=== PATIENT | male | born 1980 | race Caucasian/White ===

== ENCOUNTER 2025-06-21 08:20 | Emergency (ER) | payer OTHER, SELFPAY ==
--- NOTE | ~2025-06-21 | XR_ITS ---
EXAMINATION: XR foot LT min 3V DATE: 06/21/2025 09:34 INDICATION: 2 days of left toe pain TECHNIQUE: Dorsoplantar, two oblique and lateral views of the left foot were obtained. COMPARISON: None. FINDINGS: Bone alignment is normal. No fracture. Mild osteoarthritis at the first metatarsophalangeal and a few interphalangeal joints. Possible tiny erosion at the medial base of the first proximal phalanx. Soft tissues are unremarkable with no ankle joint effusion. IMPRESSION: 1. Mild osteoarthritis in the forefoot and possible tiny erosion at the medial base of the first meta tarsal and could not exclude an inflammatory arthritis or crystalline arthropathy such as gout.. Reviewed, dictated and finalized at location A. IMPRESSION: 1. Mild osteoarthritis in the forefoot and possible tiny erosion at the medial base of the first metatarsal and could not exclude an inflammatory arthritis or crystalline arthropathy such as gout..
--- OUTSIDE RECORDS SUMMARY | 2025-06-21 08:23 | XMS_ITS | Encounter Summary ---
Author Organization [facility] Address [address] [place] [address] Care Team Providers Care Staff Scientist Name Role Phone Fabricio Vizcaino MD Primary Care Provider [phone] Reason for Referral * Consultation (Routine) - Closed Specialty Diagnoses / Procedures Referred By Contac t Referred To Contact Sleep Center Diagnoses Obstructive sleep apnea Juno Giraldo DO [address] [address] Phone: tel: fax: [facility] - Sleep [facility] [address] [place] [address] Phone: tel: fax: Referral ID Status Reason Start Date Expiration Date V isits Requested Visits Authorized [id number] Closed Specialty Services Required 10/22/2024 10/22/2025 1 1 E AUDITOR Encounter Details Date Type Department Care Team (Late st Contact Info) Description 10/22/2024 Transcribe Orders [facility] - Centralized Scheduling [address] [place] [address] Juno Giraldo DO [address] [address] Obstructive sleep apnea Social History Tobacco Use Types Packs/Day Years Used Date Smoking Tobacco: Never Assessed Sex and Gender Information Value Date Recorded Sex Assigned at Male 08/01/2023 9:07 AM CDT Legal Sex Male 5:09 PM CDT Gender Identity Male 08/01/2023 9:07 AM CDT Sexual Orientation Straight 08/01/2023 9: 07 AM CDT documented as of this encounter Plan of Treatment Scheduled Referrals Name Type Priority Associated Diagnoses Order Schedule AMB REFERRAL TO SLEEP SPECIALIST Outpatient Referral Routine Obstructive sleep apnea 1 Occurrences starting 10/22/2024 until 10/22/2025 documented as of this encounter Visit Diagnoses Diagnosis Obstructive sleep apnea- Primary Obstructive sleep apnea (adult) (pediatric) documented in this encounter Care Teams Staff Scientist Relationship Specialty Start [place] [address] [place] [address] PCP - General Family Medicine 08/01/23 documented as of this encounter
--- OUTSIDE RECORDS SUMMARY | 2025-06-21 08:23 | XMS_ITS | Clinical Summary ---
Author Organization [facility] Address Formerly [facility] [place] [address] Care Team Providers Care Press Assistant Name Role Phone Angelina Talavera MD Primary Care Provider [phone] Allergies Active Allergy Reactions Criticality Noted Date Comments Milk-Related Compounds Hives 08/23/2023 Itchy throat, vomiting and fever Medications methocarbamol 750 MG TabIndications:C hronic left-sided low back pain, unspecified whether sciatica present Take 2 tablets (1,500 mg total) by mouth 3 (three) times daily. 60 tablet 1 0 Active Additional Information Patient not taking.Reported on 12/25/2024 lisinopril 2.5 MG tabletIndication s:Essential hypertension Take 1 tablet (2.5 mg total) by mouth daily. 90 tablet 1 0 Active Additional Information Patient not taking.Reported on 12/25/2024 baclofen (LIORESAL) 10 MG tablet Take 1 tablet (10 mg total) by mouth 3 (three) times daily as needed. 3 Active amphetamine-dext roamphetamine XR (ADDERALL XR) 30 MG 24 hr capsule Take 1 capsule (30 mg total) by mouth every morning. 5 Active ondansetron (ZOFRAN) 4 MG tabletIndication s:Nausea Take 1 tablet (4 mg total) by mouth every 8 (eight) hours as needed. 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/16/2023 10/19/2023 Wears contact lenses 08/09/2018 020 Wears glasses 08/09/2018 07/31/2020 Immunizations Immunization Administration Dates Next Due Fluzone 6 Months+ Quad (0.5 mL Prefilled Syringe ) 09/09/2020 Influenza (Generic) 08/20/2007 Influenza Adult (Generic) 10/16/2017,08/09/2016 Tdap (Generic) 11/20/2006 Family History Medical History Relation Comments Diabetes Father Heart Father Hyperlipidemia Father Hypertension Father Mental Health Mother Relation Status Comments Father Mother Alive Social History Tobacco Use Types Packs/Day Years Used Date Smoking Tobacco: Former Cigarettes 1 10 1 994 - 2004 Cigars Passive Smoke Exposure: Past Smokeless Tobacco: Never Tobacco Cessation:Counseling Given: No Comments:cigars on occasion now Alcohol Use Standard Drinks/Week Comments Yes 0 (1 standard drink = 0.6 oz pur e alcohol) occasionally AUDIT-C Answer Date Recorded Frequency of Alcohol Consumption Not on file 07/13/2020 Q2: How many drinks containi ng alcohol do you have on a typical day when you are drinking? 1 or 2 07/13/2020 Q3: How often do you have si x or more drinks on one occasion? Never 07/13/2020 PHQ-2 Answer Date Recorded Patient Health Questionnaire-2 Score 0 12/25/2024 Education Answer Date Recorded What is the highest level of school you have completed or the highest degree you have received? 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 Not on file Not on file Last Filed Vital Signs Vital Sign Reading Time Taken Comments Blood Pressure 127/89 12/25/2024 7:22 AM CLOTH HANDLER Pulse 72 12/25/2024 7:22 AM CLOTH HANDLER Temperature 36.4 C (97.5 F) 12/25/2024 7:22 AM CLOTH HANDLER Respiratory Rate 20 12/25/2024 7:22 AM CLOTH HANDLER Oxygen Saturation 99% 12/25/2024 7:22 AM CLOTH HANDLER Inhaled Oxygen Concentration - - Weight 87.5 kg (193 lb) 12/25/2024 7:22 AM CLOTH HANDLER Height 170.8 cm (5' 7.25) 12/25/2024 7:22 AM CS T Body Mass Index 30 12/25/2024 7:22 AM CLOTH HANDLER Plan of Treatment Health Maintenance Due Date Last Done Comments Annual Physical 1984 Hepatitis C 1999 Hepatitis B Vaccines (1 of 3 - 19+ 3-dose series) 2000 HPV Vaccines (1 - 3-dose SCD M series) 2008 DTaP, Tdap and Td Vaccines ( 2 - Td or Tdap) 11/20/2016 11/20/2006 COVID-19 Vaccine (2023-2 5 season) 2024 PHQ-2 (Physician [place]) Completed 12/25/2024 Meningococcal B Vaccine Aged Out No l onger eligible based on patient's age to complete this topic Meningococcal Vaccine Aged Out No curtis nellie eligible based on patient's age to complete this topic Pneumococcal Vaccine: Pediat rics (0 to 5 Years) and At-Risk Patients (6 to 49 Years) Aged Out No longer eligi ble based on patient's age to complete this topic RSV Immunizations Under 20 Months Aged Out No longer eligible based on patient's age to complete this topic Insurance [facility] Care Teams Press Assistant Relationship Specialty Start Date End Date Angelina Talavera MD [address] [address] PCP - General FAMILY PRACTICE 09/14/23
--- OUTSIDE RECORDS SUMMARY | 2025-06-21 08:23 | XMS_ITS | Continuity of Care Document ---
Author Name [facility] Organization [facility] Care Team Providers Care Channel Sales Manager Name Role Phone [facility] Unavailable Unavailable Allergies, Adverse Reactions, Alerts Combined list of allergies from Department of [facility] and [facility] facilities. It does not include entries that were removed or entered in error. Substance Category Reaction Severity Reaction type Status Date Reported Comments Source No Known Allergies Drug allergy (disorder) active 08/24/2004 [facility] Immunizations Combined list of available immunizations from the Department of [facility] and [facility] facilities. Immunization Series Date Given Administered By Site Reaction Lot Number CVX Code Drug Flap Curer Status Comments Source INFLUENZA, UNSPECIFIED FORMULATION 2006 88 complet ed [facility] TDAP 2006 115 complet ed [facility] Encounters Combined list of: 1) Encounters from [facility] facilities going backup to the last 18 months, not all [place] inpatient encounters are included; 2) Encounters from the [facility] facilities going backup to 280 months. Location Location Details Encounter Type Encounter Number Reason For Visit Attending Provider ADM Date DC Date Status Disposition Source [facility]) OUTPATIENT [id number] mendy bass, nurse visit [facility] 05/28 [facility]( Ext[facility]) [facility] Outpatient Encounter [id number] 5 01/10 [facility] Procedures Combined list of: 1) Procedures from [facility] facilities going back up to thelast 18 months, not all [place] non-surgical procedures are included; 2) All procedures from the [facility] facilities. Procedure Procedure Type Code Date Perfomer Comments Sourc e PURE TONE AUDIOMETRY (THRESHOLD); AIR ONLY 07/17/2000 DoD PURE TONE AUDIOMETRY (THRESHOLD); AIR ONLY 08/24/2004 DoD PURE TONE AUDIOMETRY (THRESHOLD); AIR ONLY 08/23/2004 DoD FITTING OF SPECTACLES, EXCEP T FOR APHAKIA; MONOFOCAL 03/05/2004 Do D PURE TONE AUDIOMETRY (THRESHOLD); AIR ONLY 10/27/2003 DoD Social History Combined list of available smoking, tobacco, and other social history from Department of Defense and Veterans Affairs facilities. Social History Type Response Date Comment Sour e Tobacco smoking status NHIS QUIT TOBACCO >12 MO and <7 YRS AGO 05/19/2010 [facility] This section is an empty social history section. DoD
--- OUTSIDE RECORDS SUMMARY | 2025-06-21 08:23 | XMS_ITS | Clinical Summary ---
Author Organization [facility] Address [address] [place] [address] Phone Care Team Providers Care Regional Flatbed Truck Driver Name Role Phone Celestino Fallon Primary Care Provider [phone] Allergies Active Allergy Reactions Criticality Noted Date Comments Milk Other (See Comments) 09/21/2016 unknown Medications methylphenidate (RITALIN) 5 mg tablet 09/17/2016 Active Active Problems Problem Noted Date Diagnosed Date Vasectomy evaluation 09/21/2016 Social History Tobacco Use Types Packs/Day Years Used Date Smoking Tobacco: Some Days Cigarettes 0.3 5 Cigars Smokeless Tobacco: Never Tobacco Cessation:Counseling Given: Yes Alcohol Use Standard Drinks/Week Comments Yes 0 (1 standard drink = 0.6 oz pur e alcohol) social Sex and Gender Information Value Date Recorded Sex Assigned at Not on file Legal Sex Male 9:09 AM CDT Gender Identity Not on file Sexual Orientation Not on file Last Filed Vital Signs Vital Sign Reading Time Taken Comments Blood Pressure 112/76 09/21/2016 10:46 AM CDT Pulse - - Temperature - - Respiratory Rate - - Oxygen Saturation - - Inhaled Oxygen Concentration - - Weight 83.9 kg (185 lb) 09/21/2016 10:46 AM CDT Height 167.6 cm (5' 6) 09/21/2016 10:46 AM CDT Body Mass Index 29.86 09/21/2016 10:46 AM CDT Plan of Treatment Health Maintenance Due Date Last Done Comments HPV VACCINES (1 - Male 3-dose series) 1996 DTAP/TDAP/TD VACCINES (1 - Tdap) 2000 HEPATITIS B VACCINES (1 of 3 - 19+ 3-dose series) 03/21 INFLUENZA VACCINE (#1) 2025 09/09/2020 Care Teams Regional Flatbed Truck Driver Relationship Specialty Start Date End Date Celestino Fallon ARNP [address] [place] [address] PCP - General NURSE PRACTITIONER 09/21/16
--- OUTSIDE RECORDS SUMMARY | 2025-06-21 08:23 | XMS_ITS | Clinical Summary ---
Author Organization [facility] Address [address] [place] [address] Care Team Providers Care Rolloff Driver Name Role Phone Fabricio Vizacino MD Primary Care Provider [phone] Source Comments [facility],non-[facility] health Affiliates and Associated Physician Practices is amultiple site organization consisting of ambulatory clinics and hospital sitesin [place], [place], [place] and [place]. This disclosure is being madepursuant to the Care Everywhere program and may not contain all information available regarding this patient. Last updated 18.[facility] Social History Tobacco Use Types Packs/Day Years Used Date Smoking Tobacco: Never Assessed Sex and Gender Information Value Date Recorded Sex Assigned at Male 08/01/2023 9:07 AM CDT Legal Sex Male 5:09 PM CDT Gender Identity Male 08/01/2023 9:07 AM CDT Sexual Orientation Straight 08/01/2023 9: 07 AM CDT Plan of Treatment Health Maintenance Due Date Last Done Comments LIPID TESTING 1981 HIV SCREENING 1996 HEPATITIS C SCREENING 04/04/1999 DTAP/TDAP/TD VACCINES (1 - Tdap) 2000 HEPATITIS B VACCINE (1 of 3 - 19+ 3-dose series) 2000 HPV VACCINE (1 - 3-dose SCDM series) 2008 COVID-19 VACCINE ( - 2023-2 5 season) 2024 DEPRESSION SCREENING 11/20/2024 INFLUENZA VACCINE (#1) 2025 ZOSTER VACCINE (1 of 2) 2031 HIB VACCINE Aged Out No longer eligi ble based on patient's age to complete this topic MENINGOCOCCAL (Group B) VACC INE SHARED DECISION-MAKING Aged Out No longer eligibl e based on patient's age to complete this topic MENINGOCOCCAL GROUPS A/C/Y/W VACCINE Aged Out No longer eligible b ased on patient's age to complete this topic PNEUMOCOCCAL VACCINE Aged Out No long er eligible based on patient's age to complete this topic Insurance [employer] Care Teams Rolloff Driver Relationship Specialty Start [place] [address] [place] [address] PCP - General Family Medicine 08/01/23
--- OUTSIDE RECORDS SUMMARY | 2025-06-21 08:23 | XMS_ITS | Encounter Summary ---
Author Organization [facility] Address [address] [place] [address] Care Team Providers Care Stave Inspector Name Role Phone Angelina Talavera MD Primary Care Provider [phone] Encounter Details Date Type Department Care Team (Late st Contact Info) Description 10/19/2023 Therapy Plan [facility] Day Services [address] [place] [address] Manny Parsons MD [address] [place] [address] Social History Tobacco Use Types Packs/Day Years Used Date Smoking Tobacco: Former Cigarettes 1 10 1 4 - 2003 Cigars Smokeless Tobacco: Never Comments:cigars on occasion now Alcohol Use Standard [...] occasion? Never 07/13/2020 PHQ-2 Answer Date Recorded PHQ-2 Score 0 12/13/2019 Education Answer Date Recorded What is the highest level of school you have completed or the highest degree you have received? 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 Wish to be (Past 1 Month) No 10/19/2023 10:18 AM POND SCALER Carie Jackson RN Act jasvir 2. Non-Specific Active Suicidal Thoughts (Past 1 Month) No 10/19/2023 10:18 AM Carie Colindres RN Act jasvir 6. Suicidal Behavior (Lifetime) No 10/19/2023 10:18 AM Carie Colindres RN Act jasvir documented as of this encounter Plan of Treatment Not on file documented as of this encounter Visit Diagnoses Not on filedocumented in this encounter Additional Health Concerns Infection Onset Date Last Indicated Resolved Time COVID-19 Rule Out 11/09/2023 11/09/2023 11/09/2023 8:38 AM POND SCALER COVID-19 Rule Out 11/09/2023 11/09/2023 11/09/2023 1:21 PM POND SCALER COVID-19 Rule Out 12/25/2024 12/25/2024 12/25/2024 7:54 AM POND SCALER COVID-19 Rule Out 12/25/2024 12/25/2024 12/25/2024 8:30 AM POND SCALER documented as of this encounter Care Teams Stave Inspector Relationship Specialty Start Date End Date Angelina Talavera MD [address] [address] PCP - General FAMILY PRACTICE 09/14/23 documented as of this encounter
[2025-06-21 08:30] VITALS: BP 190/104; PULSE 79; RESP 16; TEMP 36.4; O2SAT 100
--- OUTSIDE RECORDS SUMMARY | 2025-06-21 08:47 | XMS_ITS | Continuity of Care Document ---
Author Name [facility] Organization [facility] Care Team Providers Care High Lift Driver Name Role Phone [facility] Unavailable Unavailable Allergies, Adverse Reactions, Alerts Combined list of allergies from Department of [facility] and [facility] facilities. It does not include entries that were removed or entered in error. Substance Category Reaction Severity Reaction type Status Date Reported Comments Source No Known Allergies Drug allergy (disorder) active 08/24/2004 [facility] Immunizations Combined list of available immunizations from the Department of [facility] and [facility] facilities. Immunization Series Date Given Administered By Site Reaction Lot Number CVX Code Drug Customer Development Representative Status Comments Source INFLUENZA, UNSPECIFIED FORMULATION 2006 88 complet ed [facility] TDAP [address] [facility] Encounters Combined list of: 1) Encounters from [facility] facilities going backup to the last 18 months, not all [place] inpatient encounters are included; 2) Encounters from the [facility] facilities going backup to 280 months. Location Location Details Encounter Type Encounter Number Reason For Visit Attending Provider ADM Date DC Date Status Disposition Source [facility](Ex tended Primary Care Clinic) OUTPATIENT [id number] mendy bass, nurse visit [facility] 05/28 [facility]( Extende [facility]) [facility] Outpatient Encounter [id number] 01/10 [facility] Procedures Combined list of: 1) Procedures from [facility] facilities going back up to thelast 18 months, not all [place] non-surgical procedures are included; 2) All procedures from the [facility] facilities. Procedure Procedure Type Code Date Perfomer [...] >12 [place] and <7 YRS AGO 05/19/2010 [facility] This section is an empty social history section. DoD
--- OUTSIDE RECORDS SUMMARY | 2025-06-21 08:47 | XMS_ITS | Clinical Summary ---
Author Organization [facility] Address [address] [place] [address] Phone Care Team Providers Care Hydrometer Tester Name Role Phone Celestino Fallon Primary Care Provider Allergies Active Allergy Reactions Criticality Noted Date [...] INFLUENZA VACCINE (#1) 2025 09/09/2020 Care Teams Hydrometer Tester Relationship Specialty Start Date End Date Celestino Fallon ARNP [address] [place] [address] PCP - General NURSE PRACTITIONER 09/21/16
--- OUTSIDE RECORDS SUMMARY | 2025-06-21 08:47 | XMS_ITS | Clinical Summary ---
Author Organization [facility] Address [address] [facility] [address] [place] [address] Care Team Providers Care Children Counselor Name Role Phone Angelina Talavera MD Primary Care Provider [phone] Allergies Active Allergy Reactions Criticality Noted Date [...] (08/23/2023): Added automatically from request for surgery [id number] Eructation 08/23/2023 Overview (08/23/2023): Added automatically from request for surgery [id number] Backache 08/09/2018 Vasectomy evaluation 09/21/2016 Osteochondritis of tibial tuberosity 08/31/2016 senior care use of drug 12/29/2015 Dyslipidemia 10/21/2014 ADHD, [...] Sex Assigned at Male 12/19/2018 1:55 PM PERSONAL SHOPPER Legal Sex Male 4:24 PM CDT Gender Identity Male 12/19/2018 1:55 PM PERSONAL SHOPPER Sexual Orientation Straight 12/19/2018 1: 27 PM PERSONAL SHOPPER 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 Not on file Not on file Last Filed Vital Signs Vital Sign Reading Time Taken Comments Blood Pressure 127/89 12/25/2024 7:22 AM PERSONAL SHOPPER Pulse 72 12/25/2024 7:22 AM PERSONAL SHOPPER Temperature 36.4 C (97.5 F) 12/25/2024 7:22 AM PERSONAL SHOPPER Respiratory Rate 20 12/25/2024 7:22 AM PERSONAL SHOPPER Oxygen Saturation 99% 12/25/2024 7:22 AM PERSONAL SHOPPER Inhaled Oxygen Concentration - - Weight 87.5 kg (193 lb) 12/25/2024 7:22 AM PERSONAL SHOPPER Height 170.8 cm (5' 7.25) 12/25/2024 7:22 AM CS T Body Mass Index 30 12/25/2024 7:22 AM PERSONAL SHOPPER Plan of Treatment Health Maintenance Due Date Last Done Comments Annual Physical 1984 Hepatitis C 1999 Hepatitis B Vaccines (1 of 3 - 19+ 3-dose series) 2000 HPV Vaccines (1 - 3-dose SCD M series) 2008 DTaP, Tdap and Td Vaccines ( 2 - Td or Tdap) 11/20/2016 11/20/2006 COVID-19 Vaccine (2023-2 5 season) 2024 PHQ-2 (Physician [place]) Completed 12/25/2024 Meningococcal B Vaccine Aged Out [...] patient's age to complete this topic Insurance [facility] Care Teams Children Counselor Relationship Specialty Start Date End Date Angelina Talavera MD [address] [address] PCP - General FAMILY PRACTICE 09/14/23
--- OUTSIDE RECORDS SUMMARY | 2025-06-21 08:47 | XMS_ITS | Encounter Summary ---
Author Organization [facility] Address [address] [place] [address] Care Team Providers Care Oxygen Equipment Aide Name Role Phone Angelina Talavera MD Primary Care Provider [phone]- [phone] Encounter Details Date Type Department Care Team (Late st Contact Info) Description 10/19/2023 Therapy Plan [facility] One Day Services [address] [place] [address] Manny Parsons MD [address] [facility] [place] [address] Social History Tobacco Use Types Packs/Day Years [...] Sex Assigned at Male 12/19/2018 1:55 PM PRIZER HAND Legal Sex Male 4:24 PM CDT Gender Identity Male 12/19/2018 1:55 PM PRIZER HAND Sexual Orientation Straight 12/19/2018 1: 27 PM PRIZER HAND 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 Wish to be (Past 1 Month) No 10/19/2023 10:18 AM PRIZER HAND Carie Jackson RN Act jasvir 2. Non-Specific [...] Rule Out 11/09/2023 11/09/2023 11/09/2023 8:38 AM PRIZER HAND COVID-19 Rule Out 11/09/2023 11/09/2023 11/09/2023 1:21 PM PRIZER HAND COVID-19 Rule Out 12/25/2024 12/25/2024 12/25/2024 7:54 AM PRIZER HAND COVID-19 Rule Out 12/25/2024 12/25/2024 12/25/2024 8:30 AM PRIZER HAND documented as of this encounter Care Teams Oxygen Equipment Aide Relationship Specialty Start Date End Date Angelina Talavera MD [address] [address] PCP - General FAMILY PRACTICE 09/14/23 documented as of this encounter
--- OUTSIDE RECORDS SUMMARY | 2025-06-21 08:47 | XMS_ITS | Encounter Summary ---
Author Organization [facility] Address [address] [place] [address] Care Team Providers Care Computer Systems Analyst Name Role Phone Fabricio Vizcaino MD Primary Care Provider [phone] Reason for Referral * Consultation (Routine) - Closed Specialty Diagnoses / Procedures Referred By Contac t Referred To Contact Sleep Center Diagnoses Obstructive sleep apnea Juno Giraldo DO [address] [address] Phone: tel: fax: [facility] [address] [place] [address] Phone: tel: fax: Referral ID Status Reason Start Date Expiration Date V isits Requested Visits Authorized [id number] Closed Specialty Services Required 10/22/2024 10/22/2025 1 1 ARCHITECT Encounter Details Date Type Department Care Team (Late st Contact Info) Description 10/22/2024 Transcribe Orders [facility] - Centralized Scheduling [address] [place] [address] Juno Giraldo DO [address] [address] Obstructive sleep apnea Social History [...] (pediatric) documented in this encounter Care Teams Computer Systems Analyst Relationship Specialty Start [place] [address] [place] [address] PCP - General Family Medicine 08/01/23 documented as of this encounter
--- OUTSIDE RECORDS SUMMARY | 2025-06-21 08:47 | XMS_ITS | Clinical Summary ---
Author Organization [facility] Address [address] [place] [address] Care Team Providers Care Vice President Of Procurement Name Role Phone Fabricio Vizcaino MD Primary Care Provider [phone] Source Comments [facility],non-[facility] Affiliates and Associated Physician Practices is amultiple site organization consisting of ambulatory clinics and hospital sitesin [place], [place], [place] and [place]. This disclosure is being madepursuant to the Care Everywhere program and may not contain all information available regarding this patient. Last updated 18.[facility] Social History Tobacco Use Types Packs/Day Years [...] complete this topic Insurance [employer] Care Teams Vice President Of Procurement Relationship Specialty Start [place] [address] [place] [address] PCP - General Family Medicine 08/01/23
[2025-06-21 08:57] VITALS: BP 180/104; PULSE 72; RESP 16; O2SAT 98
--- NOTE | 2025-06-21 09:04 | ED.GENADULT ---
HPI - General Adult General Chief complaint: Extremity Injury, Lower Stated complaint: left great toe pain Time Seen by Provider: 06/21/25 08:37 History of Present Illness HPI narrative: 45-year-old male with no significant past because to present to the emergency department for evaluation for left toe pain. States the left great toe was bothering him yesterday but then acutely worsened overnight. Patient denies any falls or injuries. Patient denies any fevers or recent illness. Patient has no prior history of gout. Patient does complain of pain at the base of the left great toe. Patient does have associated erythema at the base of the left great toe with no tenderness of the toe itself. Related Data Allergies Allergy/AdvReac Type Severity Reaction Status Date / Time milk Allergy Unknown Hives Verified 06/21/25 08:59 Review of Systems Review of Systems: All systems reviewed & are unremarkable except as noted in HPI and below PMFSH Family History Family History (Updated 06/17/16 @ 23:19 by DOCTOR UNKNOWN) Father Family history of diabetes mellitus in first degree relative Family history of heart disease in male family member before age 55 Grandparent Family history of malignant neoplasm of breast Social History Social History Smoking status: Light tobacco smoker Alcohol intake: current Exam Narrative: APPEARANCE: Well appearing, no pain, no distress, well-nourished. HEAD: normocephalic, atraumatic. EYES: PERRLA/EOMI, conjunctivae clear. NOSE: Normal no drainage EARS:TMS clear with good light reflex. THROAT: Pharynx clear, no exudate. NECK: Supple. No adenopathy, no masses. RESPIRATORY: Airway patent, respirations nonlabored. Clear to auscultation bilaterally, no rales, rhonchi, wheezing. CARDIOVASCULAR: Regular rate and rhythm without murmurs rubs or gallops. ABDOMINAL: Soft, nontender, nondistended, normal bowel sounds MUSCULOSKELETAL: Tenderness at base of left great toe with mild erythema, no evidence of cellulitis NEURO: Alert. Cranial nerves II through XII intact. Good gait. Good coordination SKIN: Warm, dry. Normal Color Course Vital Signs Vital signs: Vital Signs Temperature 97.6 F 06/21/25 08:30 Pulse Rate 79 06/21/25 08:30 Respiratory Rate 16 06/21/25 08:30 Blood Pressure 190/104 H 06/21/25 08:30 Pulse Oximetry 100 08/02/25 08:30 Temperature 97.6 F 06/21/25 10:55 Pulse Rate 70 06/21/25 10:55 Respiratory Rate 16 06/21/25 10:55 Blood Pressure 165/97 H 06/21/25 10:55 Pulse Oximetry 100 06/21/25 10:55 Medical Decision Making MDM Narrative Medical decision making narrative: 45 old male presents emergency department for evaluation for left great toe pain. Patient's x-ray was positive for osteoarthritis. Patient was afebrile with no leukocytosis and normal hemoglobin patient had a normal ESR and CRP patient's uric acid was not elevated. Exam is consistent with gout, low concern for cellulitis or septic arthritis. Patient did feel improved with treatment. Patient declined use of crutches or hard sole shoe. Patient was encouraged close follow-up with primary care physician. [facility] was [facility]. Differential Diagnosis Differential Diagnosis: Osteoarthritis, gout, septic arthritis, fracture Vital Signs Vital Signs: Vital Signs Temperature 97.6 F 06/21/25 08:30 Pulse Rate 79 06/21/25 08:30 Respiratory Rate 16 06/21/25 08:30 Blood Pressure 190/104 H 06/21/25 08:30 Pulse Oximetry 100 06/21/25 08:30 Temperature 97.6 F 06/21/25 10:55 Pulse Rate 70 06/21/25 10:55 Respiratory Rate 16 06/21/25 10:55 Blood Pressure 165/97 H 06/21/25 10:55 Pulse Oximetry 100 06/21/25 10:55 Lab Data Lab results reviewed: Yes I reviewed the patient's lab results. 06/21/25 09:19 06/21/25 09:19 Labs: Lab Results 06/21/25 Range/Units 09:19 WBC 8.5 (4.5-10.0) K/mm3 RBC 5.66 (4.6-6.20) M/mm3 Hgb 16.6 (14.0-18.0) g/dL Hct 48.1 (42.0-52.0) % MCV 85.0 (80-100) fl MCH 29.3 (26-34) pg MCHC 34.5 (32-36) g/dl RDW 12.4 (11.5-14.5) % Plt Count 234 (150-375) k/mm3 MPV 9.8 (7.4-10.4) fl Immature Gran % (Auto) 0.1 (0-0.5) % Neut % (Auto) 75.1 H (45.5-73.1) % Lymph % (Auto) 16.6 L (18.3-44.2) % [place] % (Auto) 5.9 (2.6-8.5) % Eos % (Auto) 2.1 (0-4.4) % Baso % (Auto) 0.2 (0.2-1.2) % Lymph # (Auto) 1.40 (0.9-3.2) K/mm3 [place] # (Auto) 0.5 (0.1-0.6) K/mm3 Eos # (Auto) 0.2 (0-0.3) K/mm3 Baso # (Auto) 0.0 (0.0-0.1) K/mm3 Abs Immat Gran (auto) 0.01 (0.00-0.031) K/mm3 Absolute Neuts (auto) 6.3 (1.3-6.7) K/mm3 Absolute Nucleated RBC 0.000 (0.0-0.012) K/mm3 Nucleated RBC % 0.0 (0.0-0.2) % ESR 7 (0-20) mm/hr Sodium 136 L (137-145) mmol/L Potassium 3.9 (3.4-5.0) mmol/L Chloride 102 (98-107) mmol/L Carbon Dioxide 25 (22-30) mmol/L Anion Gap 9 (4-12) mmol/L BUN 12 (9-20) mg/dL Creatinine 0.93 (0.7-1.3) mg/dL Estim Creat Clear Calc 89 ml/min Estimated GFR > 60 (59 - ) Glucose 103 (65-110) mg/dL Uric Acid 7.8 (3.5-8.5) mg/dL Calcium 9.2 (8.4-10.2) mg/dL C-Reactive Protein < 0.5 (<1.0) mg/dL Imaging Data Radiologist's impression: Impressions Foot X-Ray 06/21/25 10:10 IMPRESSION: 1. Mild osteoarthritis in the forefoot and possible tiny erosion at the medial base of the first metatarsal and could not exclude an inflammatory arthritis or crystalline arthropathy such as gout.. Discharge Plan Discharge Clinical Impression: Gout, Pain in toe Patient Disposition: Home Condition: Stable Instructions: Antibiotic Form, Gout (ED) Additional Instructions: Follow gout dietary instructions, drink plenty of water, Naprosyn as directed for inflammation. Have close follow-up with your primary care physician. If you have any worsening symptoms and please call or return to the emergency department Patient Language: Slovak Prescriptions: New naproxen [Naprosyn] 500 mg tablet 500 mg PO BID Qty: 14 0RF Follow-up/Referrals: Enzo,DO Juno [Primary Care Provider] -
[2025-06-21 09:28] LABS: Hematocrit 48.1 % (42.0-52.0); Hemoglobin 16.6 g/dL (14.0-18.0); Immature Granulocyte Percent A 0.1 % (0-0.5); Lymphocytes Absolute Auto 1.40 K/mm3 (0.9-3.2); Mean Corpuscular HGB Conc 34.5 g/dl (32-36); Mean Corpuscular Hemoglobin 29.3 pg (26-34); Mean Corpuscular Volume 85.0 fl (80-100); Nucleated Red Blood Cells Absolute Auto 0.000 K/mm3 (0.0-0.012); Nucleated Red Blood Cells Perc 0.0 % (0.0-0.2); Platelet Count Result 234 k/mm3 (150-375); Red Blood Count 5.66 M/mm3 (4.6-6.20); White Blood Count 8.5 K/mm3 (4.5-10.0)
[2025-06-21] MEDS: KETOROLAC (*BKC) 60 MG/2 ML VIAL IM (09:36)
[2025-06-21 09:37] LABS: Anion Gap 9 mmol/L (4-12); Blood Urea Nitrogen 12 mg/dL (9-20); Calcium 9.2 mg/dL (8.4-10.2); Carbon Dioxide 25 mmol/L (22-30); Chloride 102 mmol/L (98-107); Estimated CRCL calculation 89 ml/min; Estimated Glomerular Filt Rate > 60; Glucose 103 mg/dL (65-110); Potassium 3.9 mmol/L (3.4-5.0); Sodium 136 mmol/L (137-145)
[2025-06-21 09:39] VITALS: BP 162/97; PULSE 69; RESP 16; O2SAT 100
[2025-06-21 09:40] LABS: CRP < 0.5 mg/dL (<1.0); Uric Acid 7.8 mg/dL (3.5-8.5)
[2025-06-21 10:55] VITALS: BP 165/97; PULSE 70; RESP 16; TEMP 36.4; O2SAT 100
== END 2025-06-21 10:57 | disposition home or self-care (01) ==
PROVIDERS: Emergency Provider Emergency Medicine; PCP Family Medicine
DX: M10.9 Gout, unspecified (principal); F17.200 Nicotine dependence, unspecified, uncomplicated; M19.072 Primary osteoarthritis, left ankle and foot
CPT/HCPCS: 36415; 73630; 80048; 84550; 85025; 85652; 86140; 96372; 99283; J1885